=== PATIENT | male | born 1960 | race Caucasian/White ===

== ENCOUNTER → 2019-11-04 08:51 | Outpatient (BNVA) | payer BC, SELFPAY | PROVIDERS: Family Provider Internal Medicine; PCP Internal Medicine; Visit Provider Urology | DX: R39.89 Other symptoms and signs involving the genitourinary system (principal); Z12.5 Encounter for screening for malignant neoplasm of prostate | CPT/HCPCS: 81001 ==

== ENCOUNTER → 2020-06-21 16:28 | Outpatient (BNVA) | payer OTHER, SELFPAY | PROVIDERS: Family Provider Internal Medicine; PCP Internal Medicine; Visit Provider Surgery | DX: Z01.812 Encounter for preprocedural laboratory examination (principal); K50.90 Crohn's disease, unspecified, without complications | CPT/HCPCS: 87635 ==

== ENCOUNTER 2020-06-26 06:01 | Day surgery (SDC) | payer OTHER, SELFPAY ==
[2020-06-26 06:10] VITALS: BP 160/84; PULSE 63; RESP 16; TEMP 36.1; O2SAT 99
[2020-06-26] MEDS: sodium chloride 0.9% 1,000 ML 30 ML IV (06:27)
--- NOTE | 2020-06-26 06:27 | W.PM.OPSUD ---
Surgery/Procedure H&P Update DATE OF PROCEDURE: June 26, 2020 DATE H&P PERFORMED: 05/31/20 H&P UPDATE INFORMATION: I have reviewed H&P completed within last 30 days, I have examined patient prior to procedure and No changes to prior documentation PREOP DIAGNOSIS: History of colon polyps and Crohn's disease PRIMARY INDICATION FOR PROCEDURE: The same PLANNED PROCEDURE: Operation Date: 06/26/20 07:00 Proposed Procedures p Colonoscopy 92852 K50.90(Not Applicable) - Fernando Meyers MD
--- NOTE | 2020-06-26 07:21 | ANES.PREANE2 ---
Pre-Anesthetic Assessment Pre-Anesthetic Assessment: Height/Weight: Height 1.78 m Weight 108.862 kg Temp Pulse Resp BP Pulse Ox 97 F L 63 16 160/84 99 06/26/20 06:10 06/26/20 06:10 06/26/20 06:10 06/26/20 06:10 06/26/20 06:10 Preop Diagnosis: History of colon polyps and Crohn's disease Proposed Procedure: Operation Date: 06/26/20 07:00 Proposed Procedures p Colonoscopy 02458 K50.90(Not Applicable) - Fernando Meyers MD Was Beta Jamila taken within 24 hours: Yes Last intake: Intake Last Liquid Date 06/25/20 Last Liquid Time 22:00 Last Solid Date 06/24/20 Last Solid Time 22:00 Social: Social History: No alcohol and No tobacco Exam: Pre-Anes Outpt Exam: alert, oriented x 3, clear to auscultation bilaterally and regular rate & rhythm Airway: Submandibular: WNL Cervical ROM: WNL MP: 2 Additional comments: upper edentulous CV/HEM: CV/HEM: HTN GI: GI: GERD Comments: Crohn's Metabolic: Metabolic: Morbid obesity and Thyroid Anesthetic Plan: ASA status: 3 Anesthesia: MAC Risk of > 500 ml blood loss (7ml/kg in children): No Meds/Allergies Current Medications: Current Medications Generic Name Dose Route Start Last Admin Trade Name Freq PRN Reason Stop Dose Admin Sodium Chloride 1,000 mls @ 30 ml s/hr 06/26/20 06:15 06/26/20 06:27 Sodium Chloride 0.9% IV 06/27/20 06:14 30 mls/hr .Q24H LUIS ANGEL Administration PFSH Anesthesia PFSH: Medical History Crohn disease History of colon polyps Hypertension Laceration of right ear Lower urinary tract symptoms Surgical History H/O hernia repair Family History Mother Cancer colon Father Arthritis Social History Smoking and tobacco status: former smoker Alcohol intake: never Adopted: No Caregiver/support person: No Lives independently: No Household members: spouse Marital status: Current occupational status: employed History of recent travel: No Data Anesthesia Cardiac Studies: No Data to Display
[2020-06-26 07:23] VITALS: BP 145/80; PULSE 53; RESP 16; TEMP 36.4; O2SAT 94
[2020-06-26 07:38] VITALS: BP 130/84; PULSE 56; RESP 18; TEMP 36.3; O2SAT 95
--- NOTE | 2020-06-26 08:52 | ANE.PACU2 ---
Inpatient post-anesthesia follow up: Airway intact: Yes Vital signs: Temperature 97.4 F Pulse Rate 56 Respiratory Rate 18 Blood Pressure 130/84 Pulse Oximetry 95 Oxygen Delivery Me thod Room Air Oxygen Flow Rate Fraction of Inspir ed Oxygen Hydration adequate: Yes Nausea and vomiting: No Pain level: 1 Mental status: Baseline
== END 2020-06-26 08:20 | disposition home or self-care (01) ==
PROVIDERS: PCP Internal Medicine; Visit Provider Surgery
PROC: 0DJD8ZZ Inspection of Lower Intestinal Tract, Via Natural or Artificial Opening Endoscopic (ICD-10-PCS; CPT 45378; principal; 2020-06-26 07:00)
DX: K50.90 Crohn's disease, unspecified, without complications (principal); Z86.010 Personal history of colon polyps; I10 Essential (primary) hypertension; Z87.891 Personal history of nicotine dependence; E66.01 Morbid (severe) obesity due to excess calories; Z68.34 Body mass index [BMI] 34.0-34.9, adult
CPT/HCPCS: 12345; 45380; 82274; 83630; 87493; 87506; 88305; J2704; J7030

== ENCOUNTER 2020-11-13 05:55 | Outpatient (CLI) | payer OTHER, SELFPAY ==
[2020-11-13 06:31] VITALS: BP 147/93; PULSE 71; RESP 17; TEMP 36.9; O2SAT 96; BMI 37.0
--- NOTE | 2020-11-13 06:44 | AMB.MCA ---
Patient Information Referred by: 59-year-old male presents emergency room for scheduled Covid Covid monoclonal antibody infusion. Seen by his primary care doctor last week tested positive for Covid he is on day 7 of symptoms. Discussed risk benefits alternatives patient wishes to proceed. Symptom onset date: 11/06/20 COVID 19 common symptoms: positive fever(s), chills, non-productive cough, dyspnea, fatigue, body aches, nasal congestion and nausea COVID 19 other sytmptoms: negative requiring more oxygen Severity: mild Treatment prior to arrival: none [facility] COVID test results: Nasal/Oral Coronavirus 2019 PCR Not detected 06/21/20 16:28 06/21/20 Criteria/Plan Inclusion/Exclusion Criteria weight >/= 40kg receiving immunosuppressive therapy, has immunosuppressive disease and age >/= 55 and has hypertension not requiring hospitalization, not requiring oxygen (if not chronically on oxygen) and no increase oxygen requirement (if chronically on oxygen) Patient education patient/family/caregiver received/reviewed fact sheet, Emergency Use Authorization/unapproved drug status discussed with patient/family/caregiver, alternatives to this treatment discussed with patient/family/caregiver, risks and benefits of medication reviewed with patient/family/caregiver, patient/family/caregiver given opportunity for questions, which were answered and patient consents to receiving Monoclonal Antibody Treatment Plan for treatment Meets criteria for Monoclonal Antibody infusion Ordering Monoclonal Antibody infusion for today
[2020-11-13 07:56] VITALS: BP 153/97; PULSE 65; RESP 18; TEMP 37.2; O2SAT 96
[2020-11-13 08:22] VITALS: BP 136/74; PULSE 65; RESP 18; TEMP 37.9; O2SAT 96
--- NOTE | 2020-11-13 08:22 | PC.NURSE ---
Informed Dr Dia of temp of 100.2. Prior to Infusion temp was 98.9. Verbal order for Tylenol 1000mg po.
[2020-11-13] MEDS: acetaminophen 500 mg Tablet 1000 MG PO (08:32)
[2020-11-13 09:21] VITALS: BP 129/70; PULSE 63; RESP 18; TEMP 37.7; O2SAT 95
[2020-11-13 10:38] VITALS: BP 123/66; PULSE 71; RESP 18; TEMP 37.2; O2SAT 96
== END 2020-11-13 10:20 | disposition home or self-care (01) ==
LOC: ER 05:58
PROVIDERS: PCP Internal Medicine; Visit Provider Internal Medicine
DX: U07.1 COVID-19 (principal)
CPT/HCPCS: 96365; J7050

== ENCOUNTER 2021-03-08 08:38 | Outpatient (CLI) | payer OTHER, SELFPAY ==
--- NOTE | 2021-03-08 08:45 | XR_ITS ---
WS: [id number] Right clavicle, 2 views, 03/08/2021 Clinical Data: PAIN IN CLAVICLE Comparison: None. Findings: No fractures or dislocations are seen. The AC joint is normal. The soft tissues are unremarkable. The right sternoclavicular joint is normal. XR/[place] [id number] Impression: Negative right clavicle.
--- NOTE | 2021-03-08 08:45 | XR_ITS ---
WS: [id number] Cervical spine, 4 views, 03/08/2021 Clinical Data: PAIN IN NECK Comparison: None. Findings: No compression fractures are seen. There is degenerative disc narrowing at C5-C6 and C6-C7 with mild anterior spurring. There is no prevertebral soft tissue swelling. The odontoid is unremarka ble. The soft tissues of the neck and the lung apices are normal. The patient has had facial surgery with small plates and screws adjacent to the maxillary sinuses and plates and screws at the left tacos ibular ramus. XR/XR cervical spine 3V* [id number] Impression: Degenerative disc narrowing at C5-6 C6 and C6-C7 with minimal anterior osteoart hritis.
== END 2021-03-08 08:39 | disposition home or self-care (01) ==
LOC: RAD 08:43
PROVIDERS: PCP Internal Medicine; Visit Provider Internal Medicine
DX: M54.2 Cervicalgia (principal); M25.511 Pain in right shoulder
CPT/HCPCS: 72040; 73000

== ENCOUNTER → 2022-03-15 13:53 | Outpatient (BNVA) | payer OTHER, SELFPAY | PROVIDERS: PCP Internal Medicine; Visit Provider Nurse Practitioner Family | DX: M79.642 Pain in left hand (principal); S61.241A Puncture wound with foreign body of left index finger without damage to nail, initial encounter; X58.XXXA Exposure to other specified factors, initial encounter; M19.042 Primary osteoarthritis, left hand | CPT/HCPCS: 73130 ==

== ENCOUNTER → 2022-04-17 14:50 | Outpatient (BNVA) | payer OTHER, SELFPAY | PROVIDERS: PCP Internal Medicine; Visit Provider Family Medicine | DX: M10.9 Gout, unspecified (principal) | CPT/HCPCS: 80053; 84550; 85025 ==

== ENCOUNTER → 2022-05-01 15:44 | Outpatient (BNVA) | payer OTHER, SELFPAY | PROVIDERS: PCP Internal Medicine; Visit Provider Nurse Practitioner | DX: M79.671 Pain in right foot (principal) | CPT/HCPCS: 73630 ==

== ENCOUNTER → 2022-07-05 13:59 | Outpatient (BNVA) | payer OTHER, SELFPAY | PROVIDERS: PCP Internal Medicine; Visit Provider Podiatrist Foot & Ankle Surgery | DX: G57.61 Lesion of plantar nerve, right lower limb (principal) | CPT/HCPCS: 73630 ==

== ENCOUNTER 2022-09-27 10:57 | Emergency (ER) | payer OTHER, SELFPAY ==
[2022-09-27 11:06] VITALS: BP 154/86; PULSE 55; RESP 14; TEMP 36.4; O2SAT 98
--- NOTE | 2022-09-27 11:33 | ED_ITS ---
HPI - Abdominal Pain General: Chief Complaint: Abdominal Pain Stated Complaint: abd pain Time Seen by Provider: 09/27/22 11:32 History of Present Illness: 61-year-old male patient comes in today with abdominal pain in the left upper quadrant radiating to the lower left quadrant. Patient reports pains been on and off for about a week now patient has a history of Crohn's disease. Patient had a flare approximately 20 years ago. Patient's had no real significant problems since then. Review of the record noted patient had a colonoscopy in that showed sigmoid Crohn's but no other abnormalities was noted at the time. Patient reports he was seen by primary care last week and was started on some Carafate for trial for his pain. Patient also takes some Nexium 20 mg daily for GERD, and hiatal hernia. Patient appears nontoxic. Patient appears in mild pain. Patient reports that eating does make pain worse. Associated Symptoms: Denies constipation, diarrhea, fever(s), nausea and vomiting Review of Systems Const: Denies: fever(s) Card: Denies: chest pain Resp: Denies: dyspnea GI: Reports: abdominal pain (Left upper quadrant); Denies: nausea, vomiting, diarrhea or constipation : Denies: difficulty urinating Musc: Reports: back pain (Right lower back); Denies: neck pain PFSH ED PFSH: Medical History Bladder pain Crohn disease Gout attack History of colon polyps Hypertension Laceration of right ear Lower urinary tract symptoms Surgical History H/O hernia repair Family History Mother Cancer colon Father Arthritis Social History Smoking and tobacco status: never smoked Alcohol intake: never Substance/Drug Use: unknown Adopted: No Caregiver/support person: No Lives independently: No Household members: spouse Marital status: Current occupational status: employed Physical Exam Const: COMMON NORMALS: alert HENMT: HEAD & SCALP: normal to inspection Neck/C-Spine: COMMON NORMALS: full ROM Resp: COMMON NORMALS: normal respiratory effort and clear to auscultation bilaterally AUSCULTATION: clear to auscultation bilaterally Cardio: COMMON NORMALS: regular rhythm RATE: bradycardic RHYTHM: regular rhythm GI: AUSCULTATION: Yes normoactive bowel sounds PALPATION: Yes Tenderness to palpation present (GI) Details: LUQ : COMMON NORMALS: Yes no CVA tenderness BLADDER/KIDNEY EXAM: Yes no CVA tenderness Back/Pelvis: COMMON NORMALS: no CVA tenderness LUMBAR SPINE/LOWER BACK: No lumbar spinal tenderness and Yes paraspinal muscle tenderness Lumbar paraspinal muscle tenderness: right Extremity: COMMON NORMALS: full ROM Neuro: SENSORIUM/ORIENTATION: Yes alert Skin: COMMON NORMALS: turgor normal GENERAL SKIN EXAM: turgor normal Course Vital Signs: Vital signs: Vital Signs Temperature 97.6 F 09/27/22 11:06 Pulse Rate 54 L 09/27/22 13:42 Respiratory Rate 16 09/27/22 13:42 Blood Pressure 141/80 09/27/22 13:42 Pulse Oximetry 98 09/27/22 13:42 Oxygen Delivery Me thod Room Air 09/27/22 13:42 MDM - Abdominal Pain Medical Decision Making 61-year-old male patient comes in today with left upper quadrant abdominal pain. On exam patient appears nontoxic. Patient moves all extremities well. Skin is warm and dry. Vital signs are normal. Patient does have some abdominal tenderness in the left upper quadrant. Differential diagnosis includes but not limited to gastritis, hiatal hernia, diverticulitis, pancreatitis. Lab values were unremarkable. CT of the abdomen pelvis noted a hiatal hernia and some diverticulosis. No signs of infection or other abnormality was noted. I believe patient's pain which is in the epigastric region is probably related to his hiatal hernia and GERD. We will stop his esomeprazole and put him on lansoprazole 30 mg twice a day to take 30 minutes before his morning meal and his evening meal. Patient will be referred to surgery for endoscopy and further evaluation. Patient reported understanding of care plan and need for follow-up or return to the ER for worsening symptoms. Patient was stable and released to home. Lab Data 09/27/22 11:37 09/27/22 11:37 Labs/Radiology: Radiology Impressions Abdomen/Pelvis CT 09/27/22 11:35 IMPRESSION: 1. Moderate esophageal hiatal hernia. 2. No hydronephrosis in either kidney. A few small bilateral renal cysts. 3. Sigmoid diverticulosis. No evidence of acute diverticulitis. 4. No other acute findings. Laboratory Results WBC 5.2 10^3/uL (4.0-10.0) 09/27/22 11:37 RBC 5.47 10^6/uL (4.1-5.3) H 09/27/22 11:37 Hgb 15.8 g/dL (11.7-16.6) 09/27/22 11:37 Hct 50.1 % (42.0-52.0) 09/27/22 11:37 MCV 91.6 fl (80-94) 09/27/22 11:37 MCH 28.9 pg (28.0-34.0) 09/27/22 11:37 MCHC 31.5 g/dL (30.0-36.0) 09/27/22 11:37 RDW 13.9 % (12.1-15.1) 09/27/22 11:37 Plt Count 281 10^3/cmm (130-400) 09/27/22 11:37 MPV 9.6 fL (7.4-10.4) 09/27/22 11:37 Neut % (Auto) 60.0 % 09/27/22 11:37 Lymph % (Auto) 21.2 % 09/27/22 11:37 [place] % (Auto) 13.7 % 09/27/22 11:37 Eos % (Auto) 3.7 % 09/27/22 11:37 Baso % (Auto) 1.0 % 09/27/22 11:37 Neut # (Auto) 3.11 10^3/uL (1.8-7.7) 09/27/22 11:37 Lymph # (Auto) 1.1 10^3/uL (0.8-4.8) 09/27/22 11:37 [place]pson # (Auto) 0.7 10^3/uL (0.2-0.9) 09/27/22 11:37 Eos # (Auto) 0.2 10^3/uL (0.0-0.8) 09/27/22 11:37 Baso # (Auto) 0.1 10^3/uL (0.0-0.1) 09/27/22 11:37 Nucleated RBC % (auto) 0 % 09/27/22 11:37 Nucleated RBCs # 0.0 /100WBC 09/27/22 11:37 Sodium 141 mmol/L (136-145) 09/27/22 11:37 Potassium 4.2 mmol/L (3.5-5.1) 09/27/22 11:37 Chloride 105 mmol/L (98-107) 09/27/22 11:37 Carbon Dioxide 27 mmol/L (22-29) 09/27/22 11:37 Anion Gap 13.2 (5-19) 09/27/22 11:37 BUN 10 mg/dL (8-23) 09/27/22 11:37 Creatinine 0.6 mg/dL (0.7-1.2) L 09/27/22 11:37 GFR Calculation 137.0 mL/min (90-130) H 09/27/22 11:37 Glucose 84 mg/dL (65-115) 09/27/22 11:37 Calculated Osmolality 290 mOsm/kg (285-295) 09/27/22 11:37 Calcium 9.0 mg/dL (8.5-10.5) 09/27/22 11:37 Total Bilirubin 0.4 mg/dL (0.15-1.2) 09/27/22 11:37 AST 19 U/L (0-40) 09/27/22 11:37 ALT 22 U/L (0-41) 09/27/22 11:37 Alkaline Phosphatase 73 U/L (40-130) 09/27/22 11:37 Total Protein 7.8 g/dL (6.6-8.7) 09/27/22 11:37 Albumin 4.7 g/dL (3.5-5.2) 09/27/22 11:37 Globulin 3.1 g/dL (1.3-4.6) 09/27/22 11:37 Lipase 26 U/L (13-60) 09/27/22 11:37 Urine Color Yellow (Yellow) 09/27/22 11:37 Urine Appearance Clear (CLEAR) 09/27/22 11:37 Urine pH 6.5 (5-7) 09/27/22 11:37 Ur Specific [place] 1.010 (1.005-1.030) 09/27/22 11:37 Urine Protein Neg (Negative) 09/27/22 11:37 Urine Glucose (UA) Norm (Normal) 09/27/22 11:37 Urine Ketones Negative (Negative) 09/27/22 11:37 Urine Blood Neg (Negative) 09/27/22 11:37 Urine Nitrate Negative (Negative) 09/27/22 11:37 Urine Bilirubin Neg (Negative) 09/27/22 11:37 Urine Urobilinogen Norm mg/dL (Negative) 09/27/22 11:37 Ur Leukocyte Esterase Negative (Negative) 09/27/22 11:37 Discharge Plan Discharge Patient Disposition: Home Clinical Impression: Esophageal hiatal hernia Abdominal pain Qualifiers: Abdominal location: epigastric Qualified Code(s): R10.13 - Epigastric pain Crohn disease Qualifiers: Gastrointestinal tract location: unspecified location Digestive disease comp lication type: without complication Qualified Code(s): K50.90 - Crohn's disease, unspecified, without complications Condition: Stable Prescriptions: New lansoprazole 30 mg capsule,delayed release(DR/EC) 30 mg PO BID Qty: 60 0RF No Action loratadine [Allergy Relief (loratadine)] 10 mg tablet 10 mg PO DAILY esomeprazole magnesium [Nexium] 20 mg capsule,delayed release(DR/EC) 40 mg PO QAM lisinopril 10 mg tablet 10 mg PO QAM sulfasalazine 500 mg tablet 1,000 mg PO BID sucralfate 1 gram tablet 1 g PO QID Tylenol Ex Str Rapid Release 500 mg Tablet 1,000 mg PO Q6H PRN (Reason: Pain) Discharge Orders: Discharge ED (Routine); Ordered 09/27/22 Ordered By: Jori Gonzalez Referrals: Ashley Otero MD [Primary Care Provider] - Discharge Diet: Usual diet Discharge Activity: Resume usual activity Patient Instructions: Hiatal Hernia (ED), Abdominal Pain (ED) Activity Restrictions/Additional Instructions: Make sure to take your lansoprazole 30 mg 1 tablet twice a day 30 minutes before your morning meal and your evening meal. Drink plenty of water with medication. Avoid foods that aggravate pain. Follow-up with primary care in 1 week. Case management will contact you regarding follow-up appointment with surgeon for further evaluation with endoscopy. Coding Level of Care Code ED Orange Picker for Chadd Shine
--- NOTE | 2022-09-27 11:35 | CT_ITS ---
WS: [id number] CT ABDOMEN PELVIS TECHNIQUE: Contrast-enhanced CT of the abdomen and pelvis with coronal and sagittal reformatted image s. CLINICAL INFORMATION: r/o abscess or infection COMPARISON: None. DLP: 925.[address] scans at [facility] use at least one of these dose optimization techniques: automated e xposure control; mA and/or kV adjustment per patient size (includes targeted exams where dose is matc hed to clinical indication); or iterative reconstruction. FINDINGS: Mild diffuse fatty infiltration liver. A few tiny hepatic cysts. Normal spleen. Moderate esophageal h iatal hernia. Normal pancreatic parenchymal enhancement. Normal portal vein and splenic vein. Normal spleen. Slight bibasilar atelectasis. Adrenal glands are normal. Normal renal parenchymal enhancement . Small renal cysts. Normal spleen. Normal caliber abdominal aorta. Celiac and SMA are patent. Prostate calcification. Diverticulosis. No evidence of acute diverticulitis. Sigmoid constipation. No rmal appendix in the RIGHT lower quadrant. Incidental fat-containing inguinal hernias RIGHT greater t perrin LEFT. CT/CT abdomen pelvis w con* [id number] IMPRESSION: 1. Moderate esophageal hiatal hernia. 2. No hydronephrosis in either kidney. A few small bilateral renal cysts. 3. Sigmoid diverticulosis. No evidence of acute diverticulitis. 4. No other acute findings.
[2022-09-27 11:40] VITALS: BP 152/95; PULSE 55; RESP 16; O2SAT 98
[2022-09-27 11:51] LABS: Add Urine Microscopic? NO; Charge for UA Resulting for Rev
[2022-09-27 11:52] LABS: Basophils # 0.1 10^3/uL (0.0-0.1); Eosinophils # 0.2 10^3/uL (0.0-0.8); Eosinophils % 3.7 %; Hematocrit 50.1 % (42.0-52.0); Hemoglobin 15.8 g/dL (11.7-16.6); Lymphocytes # 1.1 10^3/uL (0.8-4.8); Lymphocytes % 21.2 %; Mean Corpuscular HGB Conc 31.5 g/dL (30.0-36.0); Mean Corpuscular Hemoglobin 28.9 pg (28.0-34.0); Mean Corpuscular Volume 91.6 fl (80-94); Mean Platelet Volume 9.6 fL (7.4-10.4); Monocytes # 0.7 10^3/uL (0.2-0.9); Monocytes % 13.7 %; Neutrophils # 3.11 10^3/uL (1.8-7.7); Nucleated Red Blood Cells % 0 %; Platelet Count 281 10^3/cmm (130-400); Red Blood Count 5.47 10^6/uL (4.1-5.3); Red Cell Distribution Width 13.9 % (12.1-15.1); White Blood Count 5.2 10^3/uL (4.0-10.0)
[2022-09-27 11:58] LABS: Bilirubin Urine Neg (Negative); Blood Urine Neg (Negative); Glucose Urine UA Norm (Normal); Ketones Urine Negative (Negative); Leukocyte Esterase Urine Negative (Negative); Nitrate Urine Negative (Negative); Protein Urine Neg (Negative); Urine Appearance Clear (CLEAR); Urine Color Yellow (Yellow); Urobilinogen Urine Norm (Negative); pH Urine 6.5 (5-7)
[2022-09-27 12:12] LABS: Alanine Aminotransferase 22 U/L (0-41); Albumin Level 4.7 g/dL (3.5-5.2); Alkaline Phosphatase 73 U/L (40-130); Anion Gap 13.2 (5-19); Aspartate Amino Transferase 19 U/L (0-40); Blood Urea Nitrogen 10 mg/dL (8-23); Carbon Dioxide 27 mmol/L (22-29); Chloride 105 mmol/L (98-107); Globulin 3.1 g/dL (1.3-4.6); Glucose 84 mg/dL (65-115); Lipase 26 U/L (13-60); Osmolality Calculated 290 mOsm/kg (285-295); Potassium 4.2 mmol/L (3.5-5.1); Sodium 141 mmol/L (136-145); Total Bilirubin 0.4 mg/dL (0.15-1.2); Total Protein 7.8 g/dL (6.6-8.7)
[2022-09-27] MEDS: iohexol 350 mg/mL 500 mL Btl (per mL) IV (12:41)
[2022-09-27 12:57] VITALS: BP 146/89; PULSE 53; RESP 16; O2SAT 97
[2022-09-27 13:42] VITALS: BP 141/80; PULSE 54; RESP 16; O2SAT 98
[2022-09-27 14:29] VITALS: BP 141/80; PULSE 54; RESP 16; O2SAT 98
--- NOTE | 2022-09-30 09:59 | DCPLANNER ---
Addendum entered by Emilee Ellis 11/22/22 10:11: Patient had a follow up appointment scheduled with general surgery - patient did attend appointment. Addendum entered by Emilee Ellis 10/14/22 10:55: Patient has a follow up appointment scheduled for Saturday, November 05, 2022 at 1:[address] Cain at general surgery. Addendum entered by Emilee Ellis 10/04/22 11:50: insurance case manager received the following message from general surgery regarding follow up appointment: called patient but no voicemail box set up 10/03 Original Note: insurance case manager had message to schedule a follow up appointment for patient with general surgery. insurance case manager sent patients information to the front office staff at general surgery. Patients information will be printed and reviewed. Clinic will call patient with appointment information.
== END 2022-09-27 14:31 | disposition home or self-care (01) ==
PROVIDERS: Emergency Provider Nurse Practitioner Family; PCP Internal Medicine
DX: K50.90 Crohn's disease, unspecified, without complications (principal); K44.9 Diaphragmatic hernia without obstruction or gangrene; I10 Essential (primary) hypertension
CPT/HCPCS: 74177; 80053; 81003; 83690; 85025; 99285; Q9967

== ENCOUNTER 2022-11-08 05:52 | Day surgery (SDC) | payer OTHER, SELFPAY ==
[2022-11-07 10:18] VITALS: BMI 34.9
[2022-11-08 06:07] VITALS: BP 158/82; PULSE 47; RESP 16; TEMP 36.4; O2SAT 99
[2022-11-08] MEDS: sodium chloride 0.9% 1,000 ML 30 ML IV (06:21)
--- NOTE | 2022-11-08 06:50 | P.ANESASSM_ITS ---
Pre-Anesthetic Assessment Height/Weight: Height 1.73 m Weight 104.326 kg Temp Pulse Resp BP Pulse Ox O2 Del Method 97.6 F 47 L 16 158/82 99 Room Air 11/08/22 06:07 11/08/22 06:07 11/08/22 06:07 11/08/22 06:07 11/08/22 06:07 11/08/22 06:07 Operation Date: 11/08/22 07:00 Proposed Procedures p [id number] egd [id number] colon K50.90, K21.9(Not Applicable) - Gerald Cain DO s Colonoscopy(Not Applicable) - Gerald Cain DO Was Beta Jamila taken within 24 hours: N/A Was Clonidine taken within 24 hours: N/A Last intake: Intake Last Liquid Date 11/08/22 Last Liquid Time 20:00 Last Solid Date 11/06/22 Last Solid Time 18:00 Social No alcohol and No tobacco Exam alert, oriented x 3, clear to auscultation bilaterally and regular rate & rhythm Airway Submandibular: within normal limits Cervical ROM: within normal limits Mallampati: Class I Comments: Comments: poor dentition. broken spiked bottom teeth History/ROS No significant history except as noted Pulmonary None reported CV/HEM Hypertension None reported Hepatic None reported GI Gastroesophageal Reflux Disease Metabolic Morbid Obesity and None reported Musc/skel Lower Back Pain Neuropsych None reported Anesthetic Plan ASA status: 3 Anesthesia: Anesthesia Evaluation and MAC Risk of > 500 ml blood loss (7ml/kg in children): Yes, adequate IV access and fluids planned Medications/Allergies Home Medications Medication Instructions Recorded Confirmed Last Taken Type loratadine 10 mg tablet (Allergy 10 mg PO DAILY 11/04/19 11/08/22 11/07/22 Hi story Relief (loratadine)) lisinopril 10 mg tablet 10 mg PO QAM 04/17/22 11/08/22 11/07/22 History acetaminophen 500 mg tablet 1,000 mg PO Q6H PRN Pain 09/27/22 11/08/22 11/07/22 History sulfasalazine 500 mg tablet 1,000 mg PO BID 09/27/22 11/08/22 11/07/22 History methylprednisolone 4 mg tablets in See Rx Instructions PO PER PKG DIR 11/05/22 11/08/22 11/07/22 Rx a dose pack (Medrol (Nadir)) #21 ea pantoprazole 40 mg tablet,delayed 40 mg PO BID 6 weeks #84 tabs 11/05/22 11/08/22 11/07/22 Rx release (Protonix) Allergies Allergy/AdvReac Type Severity Reaction Status Date / Time bacitracin Allergy Unknown ALGY-Redness Verified 11/08/22 06:07 [From Neosporin of Skin ([id number])] neomycin Allergy Unknown ALGY-Redness Verified 11/08/22 06:07 [From Neosporin of Skin ([id number])] polymyxin B Allergy Unknown ALGY-Redness Verified 11/08/22 06:07 [From Neosporin of Skin ([id number])] Current Medications Generic Name Dose Route Start Last Admin Trade Name Freq PRN Reason Stop Dose Admin Sodium Chloride 1,000 mls @ 30 mls/hr 11/08/22 06:15 11/08/22 06:21 Sodium Chloride 0.9% IV 11/09/22 06:14 30 mls/hr .Q24H LUIS ANGEL Administration PFSH Anesthesia Medical History (Updated 11/05/22 @ 14:39 by Gerald Cain DO) Bladder pain Crohn disease Gout attack History of colon polyps Hypertension Laceration of right ear Lower urinary tract symptoms Onychomycosis Surgical History H/O hernia repair Family History Mother Cancer colon Father Arthritis Social History Smoking and tobacco status: never smoked Alcohol intake: never Substance/Drug Use: unknown Adopted: No Caregiver/support person: No Lives independently: No Household members: spouse Marital status: Current occupational status: employed Data Anesthesia Cardiac Studies: No Data to Display
--- NOTE | 2022-11-08 07:01 | W.PM.OPSUD ---
Surgery/Procedure H&P Update DATE OF PROCEDURE: November 08, 2022 DATE H&P PERFORMED: 11/05/22 H&P UPDATE INFORMATION: I have reviewed H&P completed within last 30 days, I have examined patient prior to procedure and No changes to prior documentation PLANNED PROCEDURE: Operation Date: 11/08/22 07:00 Proposed Procedures p [id number] egd [id number] colon K50.90, K21.9(Not Applicable) - DO shelby Hanson Colonoscopy(Not Applicable) - Gerald Cain DO
[2022-11-08 07:33] VITALS: BP 161/82; PULSE 48; RESP 14; TEMP 36.1; O2SAT 93
[2022-11-08 07:41] VITALS: BP 136/84; PULSE 46; RESP 16; O2SAT 95
[2022-11-08 07:50] VITALS: BP 150/72; PULSE 44; RESP 18; O2SAT 95
--- NOTE | 2022-11-08 12:36 | ANE.PACU2 ---
Inpatient post-anesthesia follow up: Airway intact: Yes Vital signs: Temperature 97.0 F Pulse Rate 44 Respiratory Rate 18 Blood Pressure 150/72 Pulse Oximetry 95 Oxygen Delivery Me thod Room Air Oxygen Flow Rate Fraction of Inspir ed Oxygen Hydration adequate: Yes Nausea and vomiting: No Pain level: 2 Mental status: Baseline
== END 2022-11-08 08:15 | disposition home or self-care (01) ==
PROVIDERS: PCP Internal Medicine; Visit Provider Surgery
PROC: 0DJ08ZZ Inspection of Upper Intestinal Tract, Via Natural or Artificial Opening Endoscopic (ICD-10-PCS; CPT 43235; principal; 2022-11-08 07:00)
PROC: 0DJD8ZZ Inspection of Lower Intestinal Tract, Via Natural or Artificial Opening Endoscopic (ICD-10-PCS; CPT 45378; 2022-11-08 07:00)
DX: K21.9 Gastro-esophageal reflux disease without esophagitis (principal); K50.90 Crohn's disease, unspecified, without complications; I10 Essential (primary) hypertension; E66.01 Morbid (severe) obesity due to excess calories; Z68.35 Body mass index [BMI] 35.0-35.9, adult; K44.9 Diaphragmatic hernia without obstruction or gangrene
CPT/HCPCS: 43239; 45380; 88305; J2704; J7030

== ENCOUNTER → 2023-09-15 16:28 | Outpatient (BNVA) | payer OTHER, SELFPAY | PROVIDERS: PCP Internal Medicine; Visit Provider Nurse Practitioner Family | DX: N41.9 Inflammatory disease of prostate, unspecified (principal) | CPT/HCPCS: G0103 ==

== ENCOUNTER 2024-03-16 11:45 | Emergency (ER) | payer OTHER, SELFPAY ==
[2024-03-16 11:59] VITALS: BP 145/82; PULSE 66; RESP 16; TEMP 36.6; O2SAT 97; BMI 36.5
--- NOTE | 2024-03-16 13:13 | XRR_ITS ---
PROCEDURE INFORMATION: Exam: XR Left Knee Exam date and time: 03/16/2024 1:17 PM Age: 63 years old Clinical indication: Injury or trauma; Other: Chainsaw laceration; Patella or knee; Left; Foreign body involvement not specified TECHNIQUE: Imaging protocol: Radiologic exam of the left knee. Views: 3 views. COMPARISON: No relevant prior studies available. FINDINGS: Bones/joints: No fracture or dislocation is appreciated. There is joint space narrowing involving the medial and patellofemoral compartments. There are medial, patellofemoral and tibial spine osteophytes. Bony mineralization is normal. There is no evidence of a significant joint effusion. Soft tissues: There is soft tissue injury/laceration medial to the patella. No radiopaque soft tissue foreign body is noted. XR/XR knee LT 3V* [id number] IMPRESSION: 1. Osteoarthritis. 2. Soft tissue injury.
--- NOTE | 2024-03-16 13:13 | W.ED.WOUNDLC ---
HPI - Wound/Laceration General: Chief Complaint: Wound/Laceration Stated Complaint: lt knee lac Time Seen by Provider: 03/16/24 12:55 Source: patient and family Mode of arrival: ambulatory Limitations: no limitations History of Present Illness: Patient is a 63-year-old male presents to ED today with complaint of laceration to his left knee that he sustained after using a chainsaw. Patient states his tetanus is up-to-date. He is ambulatory on the extremity without difficulty or assistance. Onset (ago): hour(s) Extremity Location: Left: knee Place: home Patient tetanus UTD: Yes Context: accidental Associated symptoms: Reports no associated symptoms Related Data Home Medications Medication Instructions Recorded Confirmed loratadine 10 mg tablet (Allergy 10 mg PO DAILY 11/04/19 03/13/24 Relief (loratadine)) lisinopril 10 mg tablet 10 mg PO QAM 04/17/22 03/13/24 acetaminophen 500 mg tablet 1,000 mg PO Q6H PRN Pain 09/27/22 03/13/24 sulfasalazine 500 mg tablet 1,000 mg PO BID 09/27/22 03/13/24 atorvastatin 10 mg tablet 10 mg PO DAILY 08/27/23 03/13/24 levothyroxine 25 mcg tablet 25 mcg PO DAILY 08/27/23 03/13/24 mercaptopurine 50 mg tablet 50 mg PO DAILY 03/13/24 03/13/24 Previous Rx's Medication Instructions Recorded pantoprazole 40 mg tablet,delayed 40 mg PO BID 6 weeks #84 tabs 11/05/22 release (Protonix) sulfasalazine 500 mg tablet 2 g (4 x 500 mg) PO BID #240 tabs 11/08/22 azithromycin 500 mg tablet 500 mg PO DAILY 5 days #5 tabs 03/13/24 (Zithromax) cephalexin 500 mg capsule 500 mg PO Q6H 7 days #28 caps 03/16/24 Allergies Allergy/AdvReac Type Severity Reaction Status Date / Time bacitracin Allergy Unknown ALGY-Redness Verified 03/13/24 10:19 [From Neosporin of Skin ([id number])] neomycin Allergy Unknown ALGY-Redness Verified 03/13/24 10:19 [From Neosporin of Skin ([id number])] polymyxin B Allergy Unknown ALGY-Redness Verified 03/13/24 10:19 [From Neosporin of Skin ([id number])] Review of Systems Musc: Denies: joint swelling or limited range of motion Skin/Breast: Reports: other (laceration near L knee) Neuro: Denies: numbness in extremities, weakness in extremities or sensory changes PFSH ED PFSH: Medical History Onychomycosis Gout attack History of colon polyps Laceration of right ear Bladder pain Hypertension Lower urinary tract symptoms Crohn disease Surgical History H/O hernia repair Family History Mother Cancer colon Father Arthritis Social History Smoking and tobacco/nicotine status: never used tobacco/nicotine Alcohol intake: never Substance/Drug Use: unknown Adopted: No Caregiver/support person: No Lives independently: No Household members: spouse Marital status: Current occupational status: employed Physical Exam Const: COMMON NORMALS: no acute distress, average body habitus, patient oriented x3, no limitations, healthy appearing, alert and well nourished Extremity: COMMON NORMALS: full ROM, capillary refill normal, no joint enlargement, no clubbing, cyanosis or edema and no pedal edema GENERAL: Yes normal exam except as noted LEFT LOWER EXTREMITY: Yes knee joint (laceration superior medial L knee; no muscle or joint capsule involvement ) Left knee: Yes ROM (normal) and Yes neurovascular exam (normal) Neuro: COMMON NORMALS: patient oriented x3, moves all extremities, no focal motor deficits, no sensory deficits noted and gait normal SENSORIUM/ORIENTATION: Yes alert Skin: TRAUMA: laceration Procedures Laceration Laceration 1: Site: lower extremity Side (If applicable): left Size (cm): 7.0 Description: irregular Depth: simple, single layer Local Anesthetic: lidocaine 1% and with epi Amount of anesthesia used (mL): 5.0 Pre-repair: wound explored and irrigated extensively Skin layer closed with: other (Prolene) Size (cm): 4-0 Number of sutures: 7 Technique: running Subcutaneous layer closed with: vicryl Size: 4-0 Number of sutures: 7 Technique: running Course Vital Signs: Vital signs: Vital Signs Temperature 97.9 F 03/16/24 11:59 Pulse Rate 66 03/16/24 11:59 Respiratory Rate 16 03/16/24 11:59 Blood Pressure 145/82 03/16/24 11:59 Pulse Oximetry 97 03/16/24 11:59 Oxygen Delivery Me thod Room Air 03/16/24 11:59 MDM - Wound/Laceration Medical Decision Making Wound was copiously irrigated and repaired as documented. Tetanus up-to-date. XR personal interpretation showing no bony injury. He will be placed on antibiotics. Wound care/infection precautions discussed. Suture removal timeline discussed. Medical Records I reviewed the patient's medical records. XR interpretation done by ED provider, pending radiology final review Discharge Plan Discharge Patient Disposition: Home Clinical Impression: Laceration of knee, left Qualifiers: Encounter type: initial encounter Qualified Code(s): S81.012A - Laceration without foreign body, left knee, initial encounter Condition: Stable Prescriptions: New cephalexin 500 mg capsule 500 mg PO Q6H 7 Days Qty: 28 0RF No Action loratadine [Allergy Relief (loratadine)] 10 mg tablet 10 mg PO DAILY lisinopril 10 mg tablet 10 mg PO QAM pantoprazole [Protonix] 40 mg tablet,delayed release (DR/EC) 40 mg PO BID 42 Days Qty: 84 1RF levothyroxine 25 mcg tablet 25 mcg PO DAILY atorvastatin 10 mg tablet 10 mg PO DAILY mercaptopurine 50 mg tablet 50 mg PO DAILY azithromycin [Zithromax] 500 mg tablet 500 mg PO DAILY 5 Days Qty: 5 0RF sulfasalazine 500 mg tablet 1,000 mg PO BID Hold Instructions: Resume on 03/14/23. acetaminophen 500 mg Tablet 1,000 mg PO Q6H PRN (Reason: Pain) sulfasalazine 500 mg tablet 2 g PO BID Qty: 240 5RF Rx Instructions: give with food (meal/snack) Discharge Orders: Discharge ED (Routine); Ordered 03/16/24 Ordered By: Lamar Garza Referrals: Ashley Otero MD [Primary Care Provider] - Patient Instructions: Laceration (DC) Activity Restrictions/Additional Instructions: Keep wound/laceration clean with warm soap and water twice daily. Monitor for signs of infection such as redness, swelling, increased pain, or drainage. Please seek medical re-evaluation if these occur. Some of your sutures are absorbable, others will need to be cut out in 7 to 10 days. Fill your antibiotics and start them immediately. As we discussed you need to wear your JUANITA wrap and avoid bending your knee as this could cause your sutures to dehisce. Coding Level of Care Code ED Financial Services Intern for Chadd Shine
[2024-03-16] MEDS: lidocaine-epi 1% 20 mL INJ INJECTION (13:46)
[2024-03-16 14:32] VITALS: BP 142/79; PULSE 70; RESP 18; O2SAT 95
== END 2024-03-16 14:35 | disposition home or self-care (01) ==
PROVIDERS: Emergency Provider Physician Assistant; PCP Internal Medicine
DX: S81.012A Laceration without foreign body, left knee, initial encounter (principal); W29.3XXA Contact with powered garden and outdoor hand tools and machinery, initial encounter; I10 Essential (primary) hypertension
CPT/HCPCS: 12002; 73562; 99283

== ENCOUNTER → 2024-10-10 10:06 | Outpatient (BNVA) | payer OTHER, SELFPAY | PROVIDERS: PCP Internal Medicine; Visit Provider Emergency Medicine | DX: R39.9 Unspecified symptoms and signs involving the genitourinary system (principal) | CPT/HCPCS: 81000; 87086 ==